=== PATIENT | female | born 1990 | race Caucasian/White ===

== ENCOUNTER 2017-06-06 01:37 | Emergency (ER) | payer OTHER ==
[~2017-06-06] VITALS: Ht 160 cm; Wt 74.3 kg
[2017-06-06 04:18] VITALS: BP 120/79
== END 2017-06-06 04:19 | disposition home or self-care (01) ==
LOC: EME 01:37
DX: H10.32 Unspecified acute conjunctivitis, left eye (principal)
CPT/HCPCS: 99281; 99283